=== PATIENT | female | born 1965 | race Caucasian/White ===

== ENCOUNTER 2017-05-13 05:22 | Inpatient (IN) | payer MEDICAID ==
[~2017-05-13] VITALS: Ht 162.6 cm; Wt 86.2 kg
[2017-05-13] VITALS (55 sets, daily range): BP systolic 99–137; BP diastolic 56–87
[~2017-05-13 05:22] MED LIST: ABIL5 PO; AMIT25TA9 PO; DULO30CA51 PO; IBUP-2029; PREG75CA PO; SERT100T; SUMA100T16 PO; TEMA15CA PO; TOPI50TA24 PO; ZOLM5TAB9 NS
[2017-05-13] MEDS ORDERED: LIDOCAINE HCL 1%/EPI 1:200,000 30 ML VIAL ONE (06:12)
[2017-05-13] MEDS ORDERED: NORMAL SALINE 0.9% 10 ML SYR ONE (06:12)
[2017-05-13] MEDS ORDERED: THROMBIN (BOVINE) 5000 UNITS/VIAL TOP ONE (06:12)
[2017-05-13] MEDS ORDERED: GELATIN SPONGE,ABSORBABLE SZ 100 ONE (06:12)
[2017-05-13] MEDS ORDERED: BACITRACIN 50,000 UNITS/VIAL ONE (06:13)
[2017-05-13] MEDS ORDERED: LACTATED RINGERS 1,000 ML IV SCH (06:20)
[2017-05-13] MEDS ORDERED: MIDAZOLAM HCL 2 MG/2 ML VIAL ONE (07:43)
[2017-05-13] MEDS ORDERED: FENTANYL CITRATE/PF 50MCG/ML 2ML VIAL ONE (07:43)
[2017-05-13] MEDS ORDERED: NICARDIPINE 50 MG in SODIUM CHLORIDE 0.9% 230 ML IV PRN (07:45)
[2017-05-13] MEDS ORDERED: IPRATROPIUM/ALBUTEROL 0.5-3(2.5)MG/3ML NEB INH PRN (07:45)
[2017-05-13] MEDS ORDERED: ACETAMINOPHEN 325MG TABLET PO PRN (07:45)
[2017-05-13] MEDS ORDERED: DIPHENHYDRAMINE 50MG/ML VIAL IV PRN (07:45)
[2017-05-13] MEDS ORDERED: HYDROMORPHONE HCL/PF 2MG/ML (OR) ONE (08:23)
[2017-05-13] MEDS ORDERED: SODIUM CHLORIDE 0.9% 10ML VIAL ONE (08:45)
[2017-05-13] MEDS ORDERED: SUCCINYLCHOLINE CHLORIDE 200MG/10ML VIAL IV ONE (08:45)
[2017-05-13] MEDS ORDERED: GLYCOPYRROLATE 0.2 MG/ML 2ML VIAL ONE (08:45)
[2017-05-13] MEDS ORDERED: CEFAZOLIN SODIUM 1000MG/VIAL ONE (08:45)
[2017-05-13] MEDS ORDERED: NEOSTIGMINE METHYLSULFATE 1MG/ML 10 ML VIAL ONE (08:45)
[2017-05-13] MEDS ORDERED: LIDOCAINE HCL 1% 20ML VIAL (Pyxis) INJ ONE (08:45)
[2017-05-13] MEDS ORDERED: ROCURONIUM BROMIDE 10MG/ML VIAL 5ML IV ONE (08:45)
[2017-05-13] MEDS ORDERED: LABETALOL HCL 5MG/ML VIAL 20ML IV ONE (08:45)
[2017-05-13] MEDS ORDERED: PROPOFOL 200MG/20ML VIAL IV ONE (08:45)
[2017-05-13] MEDS ORDERED: SULF-165 PO (08:55)
[2017-05-13] MEDS ORDERED: MEPERIDINE HCL/PF 25MG/ML CPJ IV PRN (09:15)
[2017-05-13] MEDS ORDERED: HYDROMORPHONE HCL/PF 2MG/ML CPJ IV PRN (09:15)
[2017-05-13] MEDS ORDERED: LABETALOL HCL 20MG/4ML CARPUJECT IV PRN (09:15)
[2017-05-13] MEDS ORDERED: ONDANSETRON HCL 4MG/2ML VIAL IV PRN (09:15)
[2017-05-13] MEDS ORDERED: HYDROCODONE/ACETAMINOPHEN 10/325MG TABLET PO PRN (10:00)
[2017-05-13] MEDS: MORPHINE SULFATE 2 MG/ML CPJ (NOT FOR IM USE) IV PRN ×2 (10:40→22:06)
[2017-05-13] MEDS ORDERED: DIPHENHYDRAMINE INJ IV PRN (10:45)
[2017-05-13] MEDS ORDERED: NALOXONE INJ IV PRN (10:45)
[2017-05-13] MEDS: DEXT 5%/LACTATED RINGERS 1,000 ML IV SCH ×2 (10:53→23:34)
[2017-05-13] MEDS: DEXAMETHASONE 4MG/ML 1ML VIAL IV SCH ×3 (11:00→23:34)
[2017-05-13] MEDS ORDERED: HYDROMORPHONE PCA 10MG/50ML IV PRN (11:30)
[2017-05-13] MEDS ORDERED: NICARDIPINE 100 MG in SODIUM CHLORIDE 0.9% 60 ML IV PRN (11:30)
[2017-05-13] MEDS: ONDANSETRON INJ IV PRN ×2 (13:54→18:12)
[2017-05-13] MEDS ORDERED: CEFAZOLIN SODIUM 1000MG/VIAL IV SCH (14:00)
[2017-05-13] MEDS: CEFAZOLIN 1000MG PREMIX 50 ML IV SCH ×2 (14:41→21:45)
[2017-05-14] VITALS (57 sets, daily range): BP systolic 90–144; BP diastolic 44–78
[2017-05-14] MEDS: DEXAMETHASONE 4MG/ML 1ML VIAL IV SCH ×2 (05:58→11:39)
[2017-05-14] MEDS: CEFAZOLIN 1000MG PREMIX 50 ML IV SCH (05:58)
[2017-05-14] MEDS: MORPHINE SULFATE 2 MG/ML CPJ (NOT FOR IM USE) IV PRN ×4 (05:59→20:49)
[2017-05-14 09:44] LABS: HEMATOCRIT 35.9 % (36.0-48.0); MEAN CORPUSCULAR HEMOGLOBIN 30.3 pg (28.0-32.0); MEAN CORPUSCULAR VOLUME 90.9 fL (81.0-99.0); PLATELET 221 x1000/uL (130-400); RED BLOOD CELL COUNT 3.95 mill/uL (4.2-5.4); RED CELL DISTRIBUTION WIDTH 13.8 % (11.6-14.6)
[2017-05-14 10:14] LABS: CARBON DIOXIDE 25 mEq/L (21-32); CHLORIDE 106 mEq/L (98-107)
[2017-05-14] MEDS: ONDANSETRON HCL 4MG/2ML VIAL IV PRN ×2 (10:46→17:47)
[2017-05-14] MEDS: DEXT 5%/LACTATED RINGERS 1,000 ML IV SCH ×2 (13:22→23:02)
[2017-05-15 01:37] VITALS: BP 126/64
[2017-05-15 04:00] VITALS: BP 120/68
[2017-05-15 08:00] VITALS: BP 135/73
[2017-05-15] MEDS: DEXT 5%/LACTATED RINGERS 1,000 ML IV SCH (11:47)
[2017-05-15] MEDS: MORPHINE SULFATE 2 MG/ML CPJ (NOT FOR IM USE) IV PRN (11:47)
[2017-05-15 12:00] VITALS: BP 126/72
[2017-05-15 16:00] VITALS: BP 137/79
[2017-05-15 20:00] VITALS: BP 112/79
[2017-05-16] VITALS: BP 126/79
[2017-05-16 04:00] VITALS: BP 126/78
[2017-05-16 08:00] VITALS: BP 123/82
[2017-05-16] MEDS ORDERED: HYDROCODONE/ACETAMINOPHEN 10/325MG TABLET PO PRN (08:45)
[2017-05-16 12:00] VITALS: BP 119/69
[2017-05-16 16:00] VITALS: BP 134/80
[2017-05-16 20:00] VITALS: BP 134/80
[2017-05-17] VITALS: BP 125/53
[2017-05-17 04:00] VITALS: BP 103/70
[2017-05-17 08:00] VITALS: BP 123/81
[2017-05-17 12:00] VITALS: BP 126/79
[2017-05-17 16:00] VITALS: BP 132/83
[2017-05-17 17:10] VITALS: BP 132/83
== END 2017-05-17 18:10 | disposition home health service (06) | DRG 321 ==
LOC: OR 05:22 → MICUSO 05:23 → 6EST 05-14 20:20
PROVIDERS: ADMIT Neurological Surgery; ATTEND Internal Medicine
PROC: 0RB30ZZ Excision of Cervical Vertebral Disc, Open Approach (ICD-10-PCS; 2017-05-13)
PROC: 0RG20K0 Fusion of 2 or more Cervical Vertebral Joints with Nonautologous Tissue Substitute, Anterior Approach, Anterior Column, Open Approach (ICD-10-PCS; principal; 2017-05-13 07:00)
DX: M47.12 Other spondylosis with myelopathy, cervical region (principal); G82.50 Quadriplegia, unspecified; M48.07 Spinal stenosis, lumbosacral region; M25.78 Osteophyte, vertebrae; M47.897 Other spondylosis, lumbosacral region; M47.22 Other spondylosis with radiculopathy, cervical region; Z80.3 Family history of malignant neoplasm of breast; F41.9 Anxiety disorder, unspecified; Z90.13 Acquired absence of bilateral breasts and nipples; M43.17 Spondylolisthesis, lumbosacral region; G95.20 Unspecified cord compression
CPT/HCPCS: 36415; 71010; 72040; 72141; 80053; 85027; 86850; 86900; 87086; 88304; 88311; 92610; 95925; 95926; 95928; 97110; 97116; 97163; 97166; 97530; 97535; A4216; C1713; J0330; J0690; J1100; J1170; J1200; J2250; J2270; J2405; J2704; J2710; J3010; J3490; J7120; J7121; L0172

== ENCOUNTER 2017-09-13 10:48 | Emergency (ER) | payer MEDICAID ==
[~2017-09-13] VITALS: Ht 165.1 cm; Wt 60.0 kg
[~2017-09-13 10:48] MED LIST changes: +SULF-165 PO
[2017-09-13] MEDS ORDERED: KETOROLAC 60MG/2ML VIAL IM ONE (13:30)
[2017-09-13 13:48] VITALS: BP 110/71
== END 2017-09-13 13:50 | disposition home or self-care (01) ==
LOC: ER 10:48
DX: M25.561 Pain in right knee (principal); G89.29 Other chronic pain; M54.9 Dorsalgia, unspecified; F32.9 Major depressive disorder, single episode, unspecified; M79.7 Fibromyalgia
CPT/HCPCS: 96372; 99283; J1885

== ENCOUNTER 2020-02-21 18:59 | Emergency (ER) | payer MEDICARE, MEDICAID ==
[~2020-02-21] VITALS: Ht 162.6 cm; Wt 73.0 kg
[~2020-02-21 18:59] MED LIST changes: -AMIT25TA9 PO; -DULO30CA51 PO; +DULO30CA52 PO; -IBUP-2029; -SERT100T; -SULF-165 PO; -SUMA100T16 PO; -TEMA15CA PO
[2020-02-21] MEDS ORDERED: IBUPROFEN 600MG TABLET PO ONE (20:15)
[2020-02-21] MEDS ORDERED: LORAZEPAM 1MG TABLET PO ONE (20:15)
[2020-02-21 23:45] VITALS: BP 132/67
== END 2020-02-21 23:45 | disposition home or self-care (01) ==
LOC: ER 18:59
DX: F41.9 Anxiety disorder, unspecified (principal); G43.909 Migraine, unspecified, not intractable, without status migrainosus; F32.9 Major depressive disorder, single episode, unspecified; M79.7 Fibromyalgia; Z98.890 Other specified postprocedural states; Z79.899 Other long term (current) drug therapy
CPT/HCPCS: 99283

== ENCOUNTER 2021-02-08 09:04 | Emergency (ER) | payer MEDICARE, MEDICAID ==
[~2021-02-08] VITALS: Ht 157.5 cm; Wt 72.0 kg
[2021-02-08] MEDS ORDERED: ONDANSETRON HCL 4MG/2ML INJ IV STA (09:39)
[2021-02-08] MEDS ORDERED: MORPHINE SULFATE 4 MG/ML CPJ (NOT FOR IM USE) IV STA (09:39)
[2021-02-08] MEDS ORDERED: SODIUM CHLORIDE 0.9% 1,000 ML IV ONE (09:45)
[2021-02-08 09:54] LABS: BASOPHILS % 0.7 % (0.0-2.0); EOSINOPHILS % 2.6 % (0.0-5.0); HEMATOCRIT. 38.7 % (36.0-48.0); HEMOGLOBIN. 13.3 g/dL (12.0-16.0); LYMPHOCYTES % 45.8 % (20.0-50.0); MEAN CORPUSCULAR HEMOGLOBIN 30.4 pg (28.0-32.0); MEAN CORPUSCULAR VOLUME 88.5 fL (81.0-99.0); MEAN PLATELET VOLUME 9.6 fl (7.4-10.4); MONOCYTES % 8.2 % (2.0-8.0); NEUTROPHILS % 42.7 % (40.0-76.0); PLATELET 211 x1000/uL (130-400); RED BLOOD CELL COUNT 4.37 mill/uL (4.2-5.4); RED CELL DISTRIBUTION WIDTH 13.3 % (11.6-14.6)
[2021-02-08 10:00] LABS: CHLORIDE 109 mEq/L (98-107)
[2021-02-08 10:04] LABS: CLARITY URINE CLEAR (CLEAR); COLOR URINE YELLOW (YELLOW); KETONES URINE NEGATIVE (NEGATIVE); LEUKOCYTE ESTERASE URINE NEGATIVE (NEGATIVE); NITRITE URINE NEGATIVE (NEGATIVE); OCCULT BLOOD URINE NEGATIVE (NEGATIVE); PROTEIN URINE NEGATIVE (NEGATIVE); SPECIFIC GRAVITY URINE 1.004 (1.005-1.030); UROBILINOGEN URINE 0.2 E.U./dL (0.2-1.0)
[2021-02-08] MEDS ORDERED: ONDA4TAB5 MT (12:53)
[2021-02-08] MEDS ORDERED: TRAM50TA3 MT (12:53)
[2021-02-08 13:00] VITALS: BP 121/67
== END 2021-02-08 13:30 | disposition home or self-care (01) ==
LOC: ER 09:04
DX: M54.5 Low back pain (principal); R10.11 Right upper quadrant pain; K80.50 Calculus of bile duct without cholangitis or cholecystitis without obstruction; F32.9 Major depressive disorder, single episode, unspecified; G43.909 Migraine, unspecified, not intractable, without status migrainosus; M79.7 Fibromyalgia; Z79.899 Other long term (current) drug therapy
CPT/HCPCS: 36415; 71045; 76705; 80053; 81003; 83690; 83880; 84484; 85025; 93005; 96361; 96374; 96375; 99285; J2270; J2405; J7030